=== PATIENT | male | born 1975 | race Caucasian/White ===

== ENCOUNTER 2023-11-27 17:59 | Emergency (ER) | payer OTHER, SELFPAY ==
[2023-11-27 18:01] VITALS: BP 122/67; BMI 22.1
[2023-11-27 18:06] VITALS: BP 122/67
[2023-11-27 18:51] LABS: % Basophils 0.6 % (0-2); % Eosinophils 1.9 % (0-6); % Immature Granulocytes 0.3 % (0-0.5); % Lymphocytes 31.6 % (20.5-51.1); % Monocytes 8.5 % (1.7-9.3); % Neutrophils 57.1 % (42.2-75.2); Absolute Basophils 0.1 10^3/uL (0-0.2); Absolute Eosinophils 0.2 10^3/uL (0-0.7); Absolute Lymphocytes 2.8 10^3/uL (1.2-3.4); Absolute Monocytes 0.8 10^3/uL (0.1-0.6); Absolute Neutrophils 5.1 10^3/uL (1.4-6.5); Hemoglobin 9.2 g/dL (13.0-18.0); Mean Corp Hgb Conc. 34.1 g/dL (33.0-37.0); Mean Corpuscular Hgb 29.3 pg (27.0-31.0); Mean Platelet Volume 8.7 fL (7.4-10.4); Nucleated Red Blood Cells % 0 % (-); Platelet Count 371 10^3/uL (130-400); Red Blood Cell Count 3.14 10^6/uL (4.70-6.10); Red Cell Dist. Width 12.9 % (11.5-14.5)
[2023-11-27 19:00] VITALS: BP 134/88
--- NOTE | 2023-11-27 19:06 | ED.GENMED ---
History of Present Illness
<JAHAIRA Danielle - Last Filed: 11/27/23 22:40>
General
Chief Complaint: Swelling
Source: patient
Exam Limitations: none
Time Seen by Provider: 11/27/23 18:17
Nursing documentation reviewed up to this point in time: agreed with
Travel History
Have you had any contact with someone who has COVID-19?: No
Do you have any symptoms of coronavirus? Fever > 100 degrees, chills, cough, shortness of breath, sore throat, loss of taste or smell, muscle aches, or headache?: Yes
Symptoms:: see triage note
History of Present Illness
History of Present Illness:
48-year-old male presents to the ER from [facility]. Patient reports he has been receiving IV cefepime and vancomycin for the past 4 days . He tells me it was both lower extremities however paperwork from [facility] states left lower extremity. Patient was sent to the ER for bilateral pitting edema of lower extremities. Patient also reports he has felt feverish over the past several days.
He denies any cough runny nose sore throat. He does report he has some mild discomfort to his back and feels some mild discomfort when he takes a deep breath.
Review of Systems
<JAHAIRA Danielle - Last Filed: 11/27/23 22:40>
Review of Systems
Allergies reviewed?: Yes
All Other Systems: ROS reviewed and negative except as documented in HPI and ROS
Constitutional: Reports other (Patient feels subjective fevers)
Respiratory: Reports other (Patient feels slight discomfort in chest with taking deep breath); Denies trouble breathing
Cardiac: Reports no symptoms
ABD/GI: Reports no symptoms; Denies nausea or vomiting
: Reports no symptoms
Musculoskeletal: Reports back pain (soreness across back )
Skin: Reports no symptoms
Neurological: Reports no symptoms
Psychiatric: Reports no symptoms
Phy Exam
<JAHAIRA Danielle - Last Filed: 11/27/23 22:40>
General Physical Exam
General Presentation: no apparent distress
General age: appears stated age
General Skin: warm and dry
General Habitus: normal
General Mental: alert
General Hydration: appears well hydrated
Cardiovascular Exam
Cardiovascular Exam: regular rate/rhythm, no murmur and normal peripheral pulses
Pulmonary Exam
Pulmonary Exam: lungs clear, no respiratory distress and other (chest non tender )
Neurological Exam
Neurological Exam: alert
Musculoskeletal Exam
Musculoskeletal Exam: full ROM and other (Bilateral lower legs with pitting edema)
Skin Exam
Skin Exam: normal color and warm/dry
Psychiatric Exam
Psychiatric Exam: normal mood/affect
Scores
<JAHAIRA Danielle - Last Filed: 11/27/23 22:40>
Heart Failure Risk
Heart Failure Risk Score: Not Applicable
Course
<JAHAIRA Danielle - Last Filed: 11/27/23 22:40>
Orders/Labs/Results
Orders:
Orders
11/27/23 18:10
Electrocardiogram (*1) Urgent
Reason for Study: Shortness of Breath
EKG- Treatment ONCE
11/27/23 18:41
BNP [NT-proBNP] Urgent
Complete Blood Count/With Diff Urgent
Troponin I Urgent
11/27/23 19:26
COVID-19 Antigen Urgent
Source: Nasal Swab
Comprehensive Metabolic Panel Urgent
DDimer [D-Dimer] Urgent
Influenza A+B Rapid Molecular Urgent
CHENCHO Source: Nasal Swab
Specimen Description:
11/27/23 19:43
Venous Doppler Lwr Ext Bilat [US Periph Venous LOWER Ext Gilberto] Urgent
Comment:
Reason For Exam: edema b/ l getting his IV was being searched skin
11/27/23 20:34
CT Chest Pe Study Urgent
Comment:
Reason For Exam: back pain + discomfort w/ deep breath elevated dd
Abnormal Lab Results
11/27/23 11/27/23
18:41 19:26
RBC 3.14 L 10^6/uL
(4.70-6.10)
Hgb 9.2 L g/dL
(13.0-18.0)
Hct 27.0 L %
(39.0-52.0)
Absolute Monos (auto) 0.8 H 10^3/uL
(0.1-0.6)
D-Dimer 1.10 H ug/mlFEU
(0.00-0.50)
Creatinine 0.6 L mg/dL
(0.7-1.3)
Glucose 101 H mg/dl
(70-99)
11/27/23 18:41
11/27/23 19:26
Vital Signs
Initial and Last Documented VS:
Initial Vital Signs
Temp Pulse Resp BP Pulse Ox
98.5 F 85 16 122/67 99
11/27/23 18:01 11/27/23 18:01 11/27/23 18:01 11/27/23 18:01 11/27/23 18:01
Last Documented Vital Signs
Temp Pulse Resp BP Pulse Ox
98.5 F 75 12 128/92 97
11/27/23 18:01 11/27/23 19:46 11/27/23 19:46 11/27/23 19:46 11/27/23 19:00
Director Global Strategic Publisher Sales consulted with Physician
Director Global Strategic Publisher Sales consulted with physician?: Yes
Name of Physician Consulted: chris
<Isis Lara MD - Last Filed: 11/27/23 22:39>
Orders/Labs/Results
Orders:
Orders
11/27/23 18:10
Electrocardiogram (*1) Urgent
Reason for Study: Shortness of Breath
EKG- Treatment ONCE
11/27/23 18:41
BNP [NT-proBNP] Urgent
Complete Blood Count/With Diff Urgent
Troponin I Urgent
11/27/23 19:26
COVID-19 Antigen Urgent
Source: Nasal Swab
Comprehensive Metabolic Panel Urgent
DDimer [D-Dimer] Urgent
Influenza A+B Rapid Molecular Urgent
CHENCHO Source: Nasal Swab
Specimen Description:
11/27/23 19:43
Venous Doppler Lwr Ext Bilat [US Periph Venous LOWER Ext Gilberto] Urgent
Comment:
Reason For Exam: edema b/ l getting his IV was being searched skin
11/27/23 20:34
CT Chest Pe Study Urgent
Comment:
Reason For Exam: back pain + discomfort w/ deep breath elevated dd
Abnormal Lab Results
11/27/23 11/27/23
18:41 19:26
RBC 3.14 L 10^6/uL
(4.70-6.10)
Hgb 9.2 L g/dL
(13.0-18.0)
Hct 27.0 L %
(39.0-52.0)
Absolute Monos (auto) 0.8 H 10^3/uL
(0.1-0.6)
D-Dimer 1.10 H ug/mlFEU
(0.00-0.50)
Creatinine 0.6 L mg/dL
(0.7-1.3)
Glucose 101 H mg/dl
(70-99)
11/27/23 18:41
11/27/23 19:26
Vital Signs
Initial and Last Documented VS:
Initial Vital Signs
Temp Pulse Resp BP Pulse Ox
98.5 F 85 16 122/67 99
11/27/23 18:01 11/27/23 18:01 11/27/23 18:01 11/27/23 18:01 11/27/23 18:01
Last Documented Vital Signs
Temp Pulse Resp BP Pulse Ox
98.5 F 75 12 128/92 97
11/27/23 18:01 11/27/23 19:46 11/27/23 19:46 11/27/23 19:46 11/27/23 19:00
<JAHAIRA Danielle - Last Filed: 11/27/23 22:40>
MDM/Problems Addressed
Differential Diagnosis Includes:
Not limited to cellulitis DVT PE, viral syndrome, less likely pneumonia, COVID, flu
MDM/Problems Addressed:
Patient is a 48-year-old male from [facility] who presented to the ER with bilateral lower extremity swelling. Patient as documented from [facility] has been on IV cefepime and vancomycin for the past 4 days for
left lower extremity cellulitis but now with bilateral pitting edema. Patient also expressed feeling feverish. Patient complained of mild back pain and some discomfort in his chest when he takes a deep breath. With a history of lower extremity
swelling and obvious swelling on exam venous ultrasounds bilaterally were performed and negative. With pleuritic type pain with deep breath D-dimer was done and elevated therefore CT chest was performed which was negative for PE. Patient is
afebrile here with a normal white count. no history of CAD/CHF neg trop neg BNP.
Patient no acute distress lungs clear not had nontachycardic and afebrile. Patient has a normal white count mildly anemic at 9.2 with no prior lab comparison, normal kidney function.
Unremarkable workup will DC with instructions for patient to follow-up on continued lower extremity swelling along with anemia
<JAHAIRA Danielle - Last Filed: 11/27/23 22:40>
*Radiology
Radiology exam reviewed: radiology read reviewed
*Pulse Oximetry
Patient hypoxic: no
*EKG
Interpreted by ED Provider?: Yes
Heart Rate: 82
Rate: normal
Rhythm: sinus
Ischemia: no ischemia
*Critical Care Note
Total Time (30-74mins, 75-104mins- exclusive of procedures): Not Applicable
ED Attending Note
<JAHAIRA Danielle - Last Filed: 11/27/23 22:40>
-
Portions of this chart may have been created with voice recognition software.� Occasional wrong word or��sound alike� substitutions may have occurred due to the inherent limitations of voice recognition software.
<Isis Lara MD - Last Filed: 11/27/23 22:39>
ED Attending Note
Patient seen and examined by attending physician: Yes
I performed the substantive portion of visit, reviewed & personally made and approve the management plan that is documented in note by myself or ALEJANDRO.: Yes
ED Attending Note:
48-year-old male just completing a course of IV antibiotics for left lower extremity cellulitis which patient states also involved his right lower extremity. The redness and pain has resolved but he still has residual lower extremity swelling. He
denies anterior chest pain, abdominal pain, nausea, vomiting, fever, chills, cough, sore throat, rhinorrhea. He does note discomfort at the posterior back, but also reports accidentally falling middle the night and wonders if it was related to that
impact. This pain is worse with a deep breath. He has not intermittent shortness of breath, no orthopnea or PND. On exam, patient is incredibly well-appearing, stable. He does have 1+ bilateral lower extremity pitting edema, otherwise exam
unremarkable pulse ox 98%, no tachypnea, etc. Workup reviewed, to the best of our ability serious pathology has been excluded such as PE, pneumothorax, DVT, ACS Cetera. Patient stable for discharge back to present with close follow-up.
Discharge Plan
Departure
Patient Disposition: Intermediate
Date of Disposition: 11/27/23
Time of Disposition: 22:38
Patient with high blood pressure during this ER visit?: Yes
Condition: Fair
Covid-19: Negative COVID-19
Discharge Problem:
Edema
Instructions: Dependent Edema (DC), BLOOD PRESSURE
Referrals:
[facility] [Family Provider] -
Activity Restrictions/Additional Instructions:
Patient was seen here in the ER for lower extremity swelling, ultrasounds were found to be negative. Patient also mentioned some chest discomfort with taking a breath and back pain. CAT scan of the chest was done and negative for PE. Patient
was found to be mildly anemic with a hemoglobin of 9.2. This will need to be followed up as an outpatient along with following up for continued evaluation of lower extremity swelling. Patient did not have a fever. He had a normal white count he
was found to be negative for COVID-negative for flu.
Patient is to return if any worsening of symptoms
Interventions
Interventions:
*Risk Screen - Suicide Last Done: 11/27/23 18:01
*General Assessment Last Done: 11/27/23 18:01
*Neglect/Abuse Screening Last Done: 11/27/23 18:01
ED- Fall Risk Assessment Last Done: 11/27/23 18:50
*ED COVID-19 Vaccine History Last Done: 11/27/23 18:01
ED- Cardiac Assessment Last Done: 11/27/23 18:50
ED- Pulmonary Assessment Last Done: 11/27/23 18:50
ED-Skin Assessment Last Done: 11/27/23 18:50
[2023-11-27 19:17] LABS: NT-proBNP 346 pg/ml; Troponin I < 0.012 ng/ml
[2023-11-27 19:46] VITALS: BP 128/92
[2023-11-27 19:48] LABS: COVID-19 Antigen Negative (Negative)
[2023-11-27 19:55] LABS: ALT (SGPT) 20 U/L (0-50); AST (SGOT) 46 U/L (17-59); Albumin 3.5 g/dl (3.5-5.0); Alkaline Phosphatase 69 U/L (38-126); Blood Urea Nitrogen 20 mg/dl (9-20); Calcium 8.7 mg/dl (8.4-10.2); Carbon Dioxide 27 mmol/L (22-30); Chloride 105 mmol/L (98-107); Estimated Creatinine Clearance > 125 ml/min; Glucose 101 mg/dl (70-99); Potassium 4.1 mmol/L (3.5-5.1); Sodium 137 mmol/L (135-145); Total Bilirubin 0.4 mg/dl (0.2-1.3); Total Protein 6.7 g/dl (6.3-8.2); eGFR > 60.00
[2023-11-27 23:16] VITALS: BP 132/80
== END 2023-11-27 23:17 ==
LOC: EMR 17:59
PROVIDERS: Emergency Medicine; Nurse Practitioner; EMERGENCY PHYSICIAN Emergency Medicine
DX: R60.0 Localized edema (principal)
CPT/HCPCS: 99284; 71275; 80053; 83880; 84484; 85025; 85379; 87502; 87811; 93005; 93970; Q9967

== ENCOUNTER 2024-02-12 17:59 | Emergency (ER) | payer OTHER, SELFPAY ==
[2024-02-12 18:02] VITALS: BP 140/83; BMI 20.1
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
[2024-02-12] MEDS: SUBUTEX 8 MG SL (19:35)
[2024-02-12 19:40] VITALS: BP 135/78
[2024-02-12 20:00] VITALS: BP 136/81
== END 2024-02-12 20:10 | disposition home or self-care (01) ==
LOC: EMR 17:59
PROVIDERS: EMERGENCY PHYSICIAN Emergency Medicine
DX: F11.23 Opioid dependence with withdrawal (principal); Z65.3 Problems related to other legal circumstances
CPT/HCPCS: 99282

== ENCOUNTER 2024-05-03 01:12 | Emergency (ER) | payer OTHER, SELFPAY ==
[2024-05-03 01:14] VITALS: BP 134/82
[2024-05-03 01:22] VITALS: BMI 25.1
--- NOTE | 2024-05-03 01:28 | ED.GENMED ---
History of Present Illness
General
Chief Complaint: Skin Surface Trauma
Source: patient
Exam Limitations: none
Time Seen by Provider: 05/03/24 01:15
History of Present Illness
History of Present Illness:
This is a 48 year old male that is brought in from the alf. States that he was sitting on the edge of the bed and he must have fell asleep and fell of the bed. States that he either hit his head on the floor or the toilet. States that he was
awake right away. States that he had a Tetanus shot when he was at [facility]. States that he does have a headache. Denies any fever, chills, chest pain, SOB, abd pain, nausea, vomiting, diarrhea, dizziness.
Past History
Past History
ED Past Medical History: HTN
ED Past Surgical History: Orthopedic (Left hip fracture)
Social History
Tobacco: Smoker
Alcohol: Occasional
Personal:
Living: alf
Review of Systems
Review of Systems
All Other Systems: ROS reviewed and negative except as documented in HPI and ROS
Constitutional: Reports no symptoms; Denies fever or chills
EENT: Reports no symptoms
Respiratory: Reports no symptoms; Denies cough or trouble breathing
Cardiac: Reports no symptoms; Denies chest pain
ABD/GI: Reports no symptoms; Denies abdominal pain, nausea, vomiting or diarrhea
: Reports no symptoms; Denies dysuria, frequency or urgency
Musculoskeletal: Reports no symptoms
Skin: Reports other (Laceration to right scalp)
Neurological: Reports headache; Denies dizzy
Psychiatric: Reports no symptoms
Phy Exam
General Physical Exam
General Presentation: well appearing and no apparent distress
General age: appears stated age
General Skin: warm and dry
General Habitus: normal
General Mental: alert
General Hydration: appears well hydrated
ENT Exam
ENT Exam: TM's normal, pharynx normal and neck supple
Eye Exam
Eye Exam: EOMI
Cardiovascular Exam
Cardiovascular Exam: regular rate/rhythm and normal peripheral pulses
Pulmonary Exam
Pulmonary Exam: lungs clear, no respiratory distress, no rales, chest non tender, no crackles, no rhonchi, no wheezing and no cough
Musculoskeletal Exam
Musculoskeletal Exam: full ROM and edema (+2 pitting edema of the lower legs)
Skin Exam
Skin Exam: normal color, warm/dry, no petechia and laceration (Right mid scalp )
Psychiatric Exam
Psychiatric Exam: normal mood/affect
Course
Orders/Labs/Results
Orders:
Orders
05/03/24 01:28
CT Head W/o Iv Contrast Urgent
Comment:
Reason For Exam: Fall hitting head
Vital Signs
Initial and Last Documented VS:
Initial Vital Signs
Temp Pulse Resp BP Pulse Ox
98.6 F 72 14 134/82 99
05/03/24 01:14 05/03/24 01:14 05/03/24 01:14 05/03/24 01:14 05/03/24 01:14
Last Documented Vital Signs
Temp Pulse Resp BP Pulse Ox
98.6 F 72 14 134/82 99
05/03/24 01:14 05/03/24 01:14 05/03/24 01:14 05/03/24 01:14 05/03/24 01:14
Procedures
Laceration Closure
Right Lateral Scalp:
Status of Wound: clean
Size of Wound in cm: 6
Description of Wound Edges: sharp
Preparation: cleaned with saline
Wound exploration: explored to base- no FB
Type of Closure: other (Mozelle)
Skin Closure Material: other (5 adriana)
MDM/Problems Addressed
Differential Diagnosis Includes:
Laceration
MDM/Problems Addressed:
This is a 48 year old male that is brought in from the alf with laceration to the scalp.
Will get CT head and staple wound. Patient has +2 pitting edema of the lower legs. Patient encouraged to talk with the doctor at the alf as his Blood pressure mediation may be causing his swelling. They may wish to change or add medication.
Chronic conditions affecting care:
NA
Acute Exacerbation and/or Progression of Chronic Illness:
NA
*Radiology
Radiology exam reviewed: radiology read reviewed (CT head night hawk- No acute intracranial findings. No evidence of intracranial hemorrhage, mass-effect, midline shift, or extra-axial fluid collection. Right frontal scalp soft tissue swelling with
skin adriana. No underlying calvarial fracture. )
*Pulse Oximetry
Patient hypoxic: no
*EKG
Interpreted by ED Provider?: NA
Rate: EKG- N/A
*Director Statistical Programming Interpretation
Rate: Director Statistical Programming- N/A
*Critical Care Note
Total Time (30-74mins, 75-104mins- exclusive of procedures): Not Applicable
ED Attending Note
-
Portions of this chart may have been created with voice recognition software.� Occasional wrong word or��sound alike� substitutions may have occurred due to the inherent limitations of voice recognition software.
Discharge Plan
Departure
Patient Disposition: Long Term
Date of Disposition: 05/03/24
Time of Disposition: 02:06
Patient with high blood pressure during this ER visit?: Yes
Condition: Good
Covid-19: Not Applicable
Discharge Problem:
Laceration of head
Instructions: Laceration Repair With Mozelle (DC), BLOOD PRESSURE
Prescriptions:
No Action
buprenorphine HCl 8 mg tablet, sublingual
8 mg sublingual DAILY Qty: 10 0RF
Referrals:
[facility] [Family Provider] - Follow up in 10 days
Activity Restrictions/Additional Instructions:
As discussed, your CT of the head is negative for any acute process. You have 5 adriana placed. Please follow up with the Doctor at the alf for staple removal in 10 days. Please also discussed with them about the lower leg swelling. IF YOU HAVE A
HEADACHE NOT RELIEVED BY TYLENOL, VOMITING, OR YOU HAVE ANY OTHER CONCERNS PLEASE RETURN TO THE EMERGENCY ROOM.
Interventions
Interventions:
*Risk Screen - Suicide Last Done: 05/03/24 01:14
*General Assessment Last Done: 05/03/24 01:14
*Neglect/Abuse Screening Last Done: 05/03/24 01:14
*ED COVID-19 Vaccine History Last Done: 05/03/24 01:22
ED-Skin Assessment Last Done: 05/03/24 01:22
Discharge Date and Time
Print Language: JAPANESE
== END 2024-05-03 02:28 ==
LOC: EMR 01:12
PROVIDERS: EMERGENCY PHYSICIAN Emergency Medicine
DX: S01.01XA Laceration without foreign body of scalp, initial encounter (principal); R51.9 Headache, unspecified; W06.XXXA Fall from bed, initial encounter; R60.0 Localized edema; I10 Essential (primary) hypertension; F17.200 Nicotine dependence, unspecified, uncomplicated
CPT/HCPCS: 99284; 12002; 70450